=== PATIENT | female | born 1970 | race African-American/Black ===

== ENCOUNTER 2016-12-13 15:17 | Emergency (ER) | payer SELFPAY ==
[2016-12-13 15:43] VITALS: BP 119/79
--- NOTE | 2016-12-13 16:16 | ED Physician Documentation ---
Upper Respiratory Symptoms - HPI Stated Complaint: cough, congestion Chief Complaint: Cough/ Upper Respiratory Additional Information: she has had non prod cough for over a week. she is using cough medicine without improvement. No infectious symptoms, she has GERD. Onset: days ago Duration: constant, intermittent episodes Context: denies: recent foreign travel, multiple patients Severity: mild Associated Symptoms: denies: fever, chills, earache, runny nose, sinus pain, sinus drainage, sore throat, hoarseness, productive cough, shortness of breath, hurts to breathe Worsened by Deep Breath: Yes Further Comments: no - ROS CONST/EYES: denies: weakness CVS/RESP: denies: chest pain, shortness of breath LYMPH: denies: leg swelling GI/: none NEURO/PSYCH: denies: fainting MS/SKIN: denies: joint pain - PAST HX Lung Disease: none PE Risk Factors: none Other History: hypertension Surgeries/Procedures: none Allergies/Adverse Reactions: Allergies Allergy/AdvReac Type Severity Reaction Status Date / Time No Known Allergies Allergy Verified 12/13/16 15:34 Home Medications: Ambulatory Orders Medication Instructions Recorded Acyclovir [Zovirax] 400 mg PO QDAY 12/13/16 Atorvastatin Calcium 40 mg PO QDAY 12/13/16 Lisinopril/Hydrochlorothiazide 1 each PO QDAY 12/13/16 [Zestoretic] Omeprazole [Prilosec] 20 mg PO QDAY 12/13/16 Oxybutynin Chloride [Ditropan] 5 mg PO QDAY 12/13/16 Pantoprazole Sodium [Protonix] 40 mg PO 0700 12/13/16 - SOCIAL HX Smoking History: cigarettes Alcohol Use: none Drug Use: none - FAMILY HX Family History: none - VITAL SIGNS Vital Signs: Vital Signs Temp Pulse Resp BP Pulse Ox 97.9 F 110 H 18 119/79 97 12/13/16 15:20 12/13/16 15:20 12/13/16 15:20 12/13/16 15:20 12/13/16 15:20 - REVIEWED ASSESSMENTS Nursing Assessment Reviewed: Yes Vitals Reviewed: Yes Progress - Results/Orders Results/Orders: this doesn't have an infectious cause, we discussed allergies and she has allergy med at home she takes PRN. she is not taking it now. Upper Respiratory Symptoms - EXAM General Appearance: no acute distress, alert EENT: nml ENT inspection, pharyngeal erythema. No: tonsillar exudate, tonsillar swelling, peritonsillar mass Neck: normal inspection, supple Respiratory: no resp. distress, breath sounds nml, no pain on inspiration, speaks full sentences. No: wheezes, rales, rhonchi Abdomen: non-tender CVS: tachycardia Skin: color nml, no rash, warm,dry Extremities: non-tender, normal range of motion Neuro/Psych: oriented x3, mood/affect nml Discharge Clincal Impression: Cough in adult Seasonal allergic reaction Qualifiers: Chronicity: acute Allergic rhinitis trigger: unspecified Qualified Code(s): J30.2 - Other seasonal allergic rhinitis Referrals: Primary Doctor,No [Primary Care Provider] - 2 Days Home Medications: Ambulatory Orders Acyclovir [Zovirax] 400 mg PO QDAY 12/13/16 Atorvastatin Calcium 40 mg PO QDAY 12/13/16 Lisinopril/Hydrochlorothiazide [Zestoretic] 1 each PO QDAY 12/13/16 Omeprazole [Prilosec] 20 mg PO QDAY 12/13/16 Oxybutynin Chloride [Ditropan] 5 mg PO QDAY 12/13/16 Pantoprazole Sodium [Protonix] 40 mg PO 0700 12/13/16 Disposition: 01 HOME, SELF-CARE Decision to Admit: NO Date of Decison to Admit: 12/13/16 Decision Time: 16:16
== END 2016-12-13 16:20 | disposition home or self-care (01) ==
LOC: ED 15:17
DX: R05 Cough (principal); J30.2 Other seasonal allergic rhinitis
CPT/HCPCS: 99283

== ENCOUNTER 2016-12-22 07:21 | Emergency (ER) | payer SELFPAY ==
[2016-12-22] MEDS ORDERED: methylPREDNISolone ACETATE 80 MG/ML VIAL IM ONE (07:55)
[2016-12-22] MEDS ORDERED: PHARMACY KEY 1 EACH EACH MC ONE (07:57)
--- NOTE | 2016-12-22 08:31 | ED Physician Documentation ---
Lower Extremity Problem - HISTORIAN Historian: patient - HPI Stated Complaint: knee pain Chief Complaint: Lower Extremity Problem Additional Information: pt. walked 5 miles yesterday and stood at work all day Location of Injury: R knee Onset: days ago (1) Timing: still present Duration: sudden-Onset Recent Injury: Yes (walking/stading yesterday) Where: work Severity: moderate Quality: swelling Exacerbated By: walking, movement Relieved By: nothing Associated Symptoms: denies: chest pain, shortness of breath, rapid heart rate, fainting Further Comments: no - ROS CONST: no problems MS/SKIN/LYMPH: other (right knee pain) CVS/RESP: none GI/: none EYES/ENT: none NERUO/PSYCH: denies: headache, difficulty walking, dizziness, anxiety, depression - PAST HX Past History: other (bilateral knee problems) PE Risk Factors: hypertension Other History: hypertension, other (asthma) Surgeries/Procedures: none Immunizations: referred to PCP Allergies/Adverse Reactions: Allergies Allergy/AdvReac Type Severity Reaction Status Date / Time No Known Allergies Allergy Verified 12/22/16 07:46 Home Medications: Ambulatory Orders Medication Instructions Recorded NICOTINE 21mg [HABITROL 21mg] 21 each TD QD 12/22/16 - SOCIAL HX Smoking History: non-smoker, quit greater than 1 year Alcohol Use: none Drug Use: none - FAMILY HX Family History: no significant history - VITAL SIGNS Vital Signs: Vital Signs Temp Pulse Resp BP Pulse Ox 97.9 F 79 16 130/84 98 12/22/16 07:25 12/22/16 07:25 12/22/16 07:25 12/22/16 07:25 12/22/16 07:25 - REVIEWED ASSESSMENTS Nursing Assessment Reviewed: Yes Vitals Reviewed: Yes Progress - Results/Orders Results/Orders: right knee x-ray ordered - Progress Progress: pt. given injection of 80 mg depo medrol, 8 mg decadron and 1 cc 2% lidocaine with 25 G sterile needle using medial approach, well tolerated, no complications Critical Care Note - Critical Care Note Total Time (mins): 0 ED Results Lab/Radiology - Lab Results Lab Results: none ordered - Radiology Radiology Impressions: x-ray right knee shows slight narrowing of medial joint space - Orders Orders: ED Orders Category Date Time Status KNEE 3 VIEWS [RAD] Stat Exams 12/22/16 Taken Dexamethasone Sod Phosphate [Decadron] Med 12/22/16 07:53 Discontinued 8 mg IM NOW ONE Lidocaine 2% 20ml Vial [Xylocaine] Med 12/22/16 07:54 Discontinued 20 mg IP NOW ONE [facility] 12/22/16 07:57 Discontinued 1 each [facility] .STK-MED ONE methylPREDNISolone ACETATE [Depo-Medrol] Med 12/22/16 07:51 Ordered 80 mg IM NOW PRN Lower Extremity Problem - EXAM General Appearance: moderate distress Hips: bilateral hip: non-tender, normal inspection, normal range of motion, no evidence of injury Legs: bilateral: non-tender, normal inspection, normal range of motion, no evidence of injury Knees: right: joint effusion (mild ), other (no lig. laxity, positive crepitence ) Ankle: bilateral: non-tender, normal inspection, normal range of motion, no evidence of injury Foot: bilateral foot: non-tender, normal inspection, normal range of motion, no evidence of injury DTR - Lower Extremities: knee (R): 2+, knee (L): 2+, ankle (R): 2+, ankle (L): 2 + Neuro/Tendon: normal sensation, normal motor functions, no evidence tendon injury EENT: eye inspection normal, ENT inspection normal, pharynx normal, no signs of dehydration, NORMA, no nystagmus, TM's nml RESPIRATORY: no resp distress, chest non-tender, breath sounds normal CVS: reg rate & rhythm, heart sounds normal, equal pulses, no murmur, no gallop , PMI nml, no JVD JOINT: nml ROM (right knee), Nml gait/weight bearing (right knee), click/ crepitus (crepitus right knee), painful (right knee) VASCULAR: no vascular compromise, pulses full/equal NEURO/PSYCH: oriented X3, CN's nml as tested, motor nml, sensation nml SKIN: warm/dry, normal color BACK: normal inspection, no CVA tenderness Discharge Clincal Impression: Chondromalacia Referrals: Primary Doctor,No [Primary Care Provider] - 2 Days Home Medications: Ambulatory Orders NICOTINE 21mg [HABITROL 21mg] 21 each TD QD 12/22/16 Comments: Pt. discharged in stable condition with stooping/kneeling restrictions for 72 hours. Condition: Stable Disposition: 01 HOME, SELF-CARE Decision to Admit: NO Decision Time: 08:30
[2016-12-22] MEDS: methylPREDNISolone ACETATE 80 MG/ML VIAL IM PRN (08:32)
[2016-12-22] MEDS: DEXAMETHASONE SOD PHOS 4 MG/ML VIAL IM ONE (08:32)
[2016-12-22] MEDS: Lidocaine 2% 20ml Vial IP ONE (08:33)
[2016-12-22 08:36] VITALS: BP 126/84
--- NOTE | 2016-12-22 23:53 | Diagnostic Imaging Report ---
[facility] [address] [facility].[address] [address] ~ ~ ~ ~ Report Submission Date: Dec 22, 2016 8:17:11 AM CDT Patient ~ Study Name: GURVINDER CORTÉS ~ Date: Dec 22, 2016 7:55:02 AM CDT ~ Modality Type: CR Gender: F ~ Description: LOWER EXTREMITY : 74 ~ Institution: [facility] Physician GEETA RODRÍGUEZ ~ ~ ~ Right Knee, 3 views History: Findings: The osseous structures are intact without acute fracture. The alignment are normal. There is mild narrowing of the medial tibiofemoral joint space. There is no soft tissue swelling. Impression: 1. No acute osseous abnormality. ~ Electronically signed on Dec 22, 2016 8:17:11 AM CDT by: Abelardo SURESH
== END 2016-12-22 08:35 | disposition home or self-care (01) ==
LOC: ED 07:21
DX: M94.261 Chondromalacia, right knee (principal)
CPT/HCPCS: 73562; J1040; J1100; 10060; 96372; 99283